=== PATIENT | male | born 1970 | race Caucasian/White ===

== ENCOUNTER 2019-04-28 01:21 | Outpatient (CLI) | payer MEDICAID, SELFPAY ==
--- NOTE | 2019-04-28 08:52 | DI.US_ITS ---
EXAM: US ABDOMEN CLINICAL HISTORY: PERIUMBILICAL/RUQ PAIN, R10.10, R10.33, R42, ? HERNIA/GALLSTONES TECHNIQUE: Ultrasound abdomen performed using standard protocol. COMPARISON: No exams were available for comparison FINDINGS: LIVER: Normal. Hepatopetal flow through the portal vein. GALLBLADDER: No evidence of cholelithiasis. No evidence of wall thickening. No pericholecystic fluid identified. KIDNEYS: Kidneys are symmetric in size. No evidence of renal calculi. No evidence of hydronephrosis. No renal mass or cyst identified. BILIARY SYSTEM: Common bile duct measures 4 mm. No intrahepatic biliary ductal dilation. ARREOLA'S SIGN: Negative. PANCREAS: Normal where visualized. SPLEEN: Not enlarged. ABDOMINAL AORTA AND IVC: Visualized portions normal caliber. ASCITES: None seen. No sonographic evidence of a periumbilical hernia. IMPRESSION: Normal sonographic appearance of the upper abdomen.
[2019-04-28 10:11] LABS: Absolute Basophil Count 0.03 k/cumm (0.0-0.2); Absolute Eosinophil Count 0.12 k/cumm (0.0-0.7); Absolute Monocyte Count 0.42 k/cumm (0.11-0.7); Absolute Neutrophil Count 2.42 k/cumm (1.2-6.7); Basophils % 0.6; Eosinophils % 2.5; HCT 40.1 % (40.0-50.0); HGB 13.8 g/dL (13.5-17.5); Lymphocytes % 38.9; Mean Corp. HGB Concentration 34.4 g/dL (32.0-36.0); Mean Corpuscular Hemoglobin 29.4 pg (27.0-33.0); Mean Corpuscular Volume 85.5 fL (80-95); Mean Platelet Volume 8.9 fL (8.0-11.0); Monocytes % 8.6; Neutrophils % 49.4; Platelet Count 358 x1000/uL (130-400); RBC 4.69 m/cumm (4.50-6.00); RBC Distribution Width 12.1 % (11.8-14.1); White Blood Cell Count 4.89 k/cumm (4.4-10.8)
[2019-04-28 10:32] LABS: Bilirubin Negative (Negative); Blood Negative (Negative); Clarity Clear (Clear); Glucose Negative (Negative); Ketones Negative (Negative); Leukocyte Esterase Negative (Negative); Nitrite Negative (Negative); Urobilinogen 0.2 EU/dL (Up TO 0.2); pH 7.5 (5-8)
[2019-04-28 11:34] LABS: Calculated LDL 204 mg/dL (<100); Cholesterol 276 mg/dL (<200); HDL Cholesterol 52 mg/dL (40-60); Triglyceride 104 mg/dL (<150); Vitamin B12 422 pg/mL (193-986)
[2019-04-28 12:02] LABS: ALT 27 U/L (16-63); AST 16 U/L (15-37); Albumin 4.2 g/dL (3.4-5.0); Alkaline Phosphatase 58 U/L (46-116); Anion Gap 9.7 mmol/L (3-11); BUN 5 mg/dL (7-18); Bilirubin, Total 0.4 mg/dL (0.2-1.0); CO2 28.3 mmol/L (21.0-32.0); CREATININE 0.79 mg/dL (0.70-1.30); Calcium 9.1 mg/dL (8.5-10.1); Chloride 100 mmol/L (98-107); Glucose 119 mg/dL (74-106); Potassium 4.2 mmol/L (3.5-5.1); Sodium 138 mmol/L (136-145); TSH 1.51 uIU/mL (0.36-3.74); Total Protein 7.6 g/dL (6.4-8.2)
[2019-04-29 09:59] LABS: PSA, Screening 0.4 ng/mL (0.0-3.5)
[2019-04-29 11:19] LABS: Hepatitis B Surface Ag Negative (Negative)
[2019-04-29 11:22] LABS: HBs Antibody, Quant <3.1 mIU/mL (See Note); Hepatitis B Surface Ab Negative (See Note)
[2019-04-29 11:30] LABS: Hepatitis C Ab w Rflx HCV PCR Negative (Negative)
== END 2019-04-28 01:41 ==
PROVIDERS: PCP Naturopath; Visit Provider Naturopath
DX: R10.11 Right upper quadrant pain (principal); R10.33 Periumbilical pain; R42 Dizziness and giddiness; R53.83 Other fatigue; F32.9 Major depressive disorder, single episode, unspecified; D53.9 Nutritional anemia, unspecified; R30.0 Dysuria; N42.9 Disorder of prostate, unspecified; Z13.220 Encounter for screening for lipoid disorders
CPT/HCPCS: 36415; 80053; 80061; 84153; 86706; 86803; 87340; 76700; 81003; 82607; 84439; 84443; 85025

== ENCOUNTER 2020-04-12 10:59 | Emergency (ER) | payer MEDICAID, SELFPAY ==
[2020-04-12 11:03] VITALS: BP 140/76; PULSE 78; RESP 18; TEMP 36.2; O2SAT 97
--- NOTE | 2020-04-12 11:15 | DI.RAD_ITS ---
EXAM: XR HAND LT COMPLETE CLINICAL HISTORY: Swelling, unknown injury. TECHNIQUE: 2D digital imaging was performed. COMPARISON: No exams were available for comparison FINDINGS: BONES: No acute fracture is present. No bony destructive lesion is seen. JOINTS: No dislocation present. There is osteoarthritis of the hand. SOFT TISSUE: Normal. No radiopaque foreign bodies. IMPRESSION: Osteoarthritis of the left hand. DATA REPOSITORY: RADIATION DOSE DELIVERED:
--- NOTE | 2020-04-12 11:18 | ED.GENADUL_ITS ---
Discharge Plan Disposition Patient Disposition: HOME Condition: Stable Discharge Details Clinical Impression: Cellulitis of left hand Primary Care Provider: Bety Purcell ED Provider: Valerie Morton Home Meds and New Rx's Prescriptions: New cephalexin 500 mg tablet 500 mg PO BID 10 Days Qty: 20 RF: 0 Continued ibuprofen 800 mg Tablet 800 mg PO Q6H PRNRF: 0 cholecalciferol (vitamin D3) [Vitamin D3] 50 mcg (2,000 unit) Tablet 50 mcg PO DAILY RF: 0 Probiotic 3 billion cell Capsule 3,000 mmu cells PO DAILY RF: 0 Discharge Instructions Instructions: Cellulitis (ED) Additional Instructions: Take antibiotics as directed. You were given the first dose of ceftriaxone IV here in department. You may take the first dose of oral antibiotic tonight. Continue taking probiotics or eat yogurt daily while on antibiotics. Return to the ED if the redness extends past the marking which were done today. Return to the ED for any fever, chills, or any concerns or feeling worse at any time. Follow up with primary care provider in 3-5 days. Return to ED sooner if any worsening or concerns. Increase oral fluids. Please take Tylenol or Ibuprofen with food every 4-6 hours as needed for pain and swelling. Referrals: Bety Purcell [Primary Care Provider] - Medical Decision Making 50 year old male presents to the ED with chief complaint of left hand erythema and swelling which he noted worsened yesterday. He states that over the weekend he was shoveling snow and carrying wood. He does state that few days ago he did fall while skiing. No significant reports of trauma. He presents with decreased flexion and decreased ability to make a fist. He does have erythema noted to the thenar eminence. He also endorses some mild chills he has been applying ice and taking ibuprofen last ibuprofen was at 9:00 this morning. He has no significant past medical history, does not take any medications on a regular basis. No known drug allergies. He has no other complaints. CBC is within normal limits, absolute neutrophils are 8.29 no white blood cell count, sodium 131, chloride 97 glucose 135, blood cultures x2 are pending at this time. EXAM: XR HAND LT COMPLETE CLINICAL HISTORY: Swelling, unknown injury. TECHNIQUE: 2D digital imaging was performed. COMPARISON: No exams were available for comparison FINDINGS: BONES: No acute fracture is present. No bony destructive lesion is seen. JOINTS: No dislocation present. There is osteoarthritis of the hand. SOFT TISSUE: Normal. No radiopaque foreign bodies. IMPRESSION: Osteoarthritis of the left hand. Discussed x-ray results and lab results with patient who verbalized understanding. Erythema was marked with a marker and dated. Discussed strict return instructions with patient and discussed to return to the ED over the next 48 hours if erythema extends past the line. Patient verbalized understanding. He was given 1 g of ceftriaxone IV piggyback here in the department and prescribed cephalexin 500 mg twice a day x10 days. At this time I do feel that outpatient treatment is appropriate. I did discuss strict return instructions with patient who verbalized understanding. HPI General Mode of arrival: ambulatory . Date/Time Provider Initiated Documentation: 04/12/20 11:11 . Limitations to Documentation: no limitations . Information obtained by: patient . HPI Narrative: 50 year old male presents to the ED with chief complaint of left hand erythema and swelling which he noted worsened yesterday. He states that over the weekend he was shoveling snow and carrying wood. He does state that few days ago he did fall while skiing. No significant reports of trauma. He presents with decreased flexion and decreased ability to make a fist. He does have erythema noted to the thenar eminence. He also endorses some mild chills he has been applying ice and taking ibuprofen last ibuprofen was at 9:00 this morning. He has no significant past medical history, does not take any medications on a regular basis. No known drug allergies. He has no other complaints. Related Data Home Medications Medication Instructions Recorded Confirmed Probiotic 3,000 mmu cells PO DAILY 04/12/20 04/12/20 cephalexin 500 mg PO BID 10 Days #20 tab 04/12/20 cholecalciferol (vitamin D3) 50 mcg PO DAILY 04/12/20 04/12/20 [Vitamin D3] ibuprofen 800 mg PO Q6H PRN 04/12/20 04/12/20 Previous Rx's Medication Instructions Recorded cephalexin 500 mg PO BID 10 Days #20 tab 04/12/20 Allergies Allergy/AdvReac Type Severity Reaction Status Date / Time No Known Allergies Allergy Unverified 04/12/20 11:08 General Stated Complaint: Orthopedic BEATA: 4 Review of Systems Narrative: Constitutional: Negative for weight loss, alert and oriented, well groomed, normal body habitus, appears comfortable. HEENT: Denies trauma, headaches, blurry vision, nasal discharge, sore throat, trouble swallowing. Chest: Denies chest pain, palpitations, irregular rhythm, hypertension. Respiratory: Denies Shortness of breath, cough, hemoptysis. GI: Denies abdominal pain, nausea, vomiting, diarrhea, constipation. : Denies dysuria, hematuria, flank pain, rectal bleeding. Musculoskeletal: Left hand redness and swelling tenderness x2 days. Neuro: Denies dizziness, blurry vision, weakness, syncope, headache or facial numbness. Hematologic: Denies easy bruising, intolerance to heat or cold, hair loss. PFSH Surgical History H/O left knee surgery Social History Smoking/Tobacco Use Status: Current every day Tobacco Type: smokeless tobacco Smoking risk assessment performed?: Yes Alcohol Intake: current Alcohol Intake frequency: a few times a week Drug use: Occasionally Substance use type: marijuana Do you feel safe at home: Yes Do you feel safe in your relationship?: Yes Exam Narrative Exam Narrative: Constitutional: Alert and oriented x3. Appears stated age. Normal body habitus. Head: Normocephalic, no trauma. Eyes: Pupils PERRLA, Red reflex noted, EOM's intact. Eyelids symmetrical without lesions, discharge, or swelling. ENT: Bilateral TM's WNL, External ear normal to inspection, no mastoid TTP, swelling, or erythema, Nasal turbinates WNL, no nasal discharge. Normal dentition, Posterior pharynx WNL, no exudate. Chest: RRR, Normal S1, S2, distal pulses intact. Resp: Lungs clear to auscultation bilaterally, no wheezes, rales, or rhonchi. Musculoskeletal: Normal gait, left hand erythema and swelling noted that are imminent surrounding the base of the thumb. Does have some dorsal erythema to the base of the thumb and questionable splinter puncture wound. Questionable erythema extending up to the anterior forearm. No axilla tenderness or erythema is able to bend elbow. Skin: Capillary refill less than 2 sec. See diagram below. Neurologic: Cranial nerves II-XII intact. Alert and oriented x 3. DTR's intact. Hematologic/Lymphatic: No ecchymosis, no lymphadenopathy. Extrem Hand/finger images: 1. Erythema, warmth, swelling 2. Erythema, questionable splinter, versus wound 3. Erythema Course Vital Signs Vital signs: Vital Signs Temperature 36.2 C L 04/12/20 11:03 Pulse 78 04/12/20 11:03 Respiratory Rate 18 04/12/20 11:03 Blood Pressure 140/76 04/12/20 11:03 Pulse Oximetry 97 04/12/20 11:03 Temperature 36.2 C L 04/12/20 11:03 Temperature Source Skin 04/12/20 11:03 Pulse 78 04/12/20 11:03 Respiratory Rate 18 04/12/20 11:03 Respiratory Effort Non-Labored 04/12/20 11:06 Blood Pressure 140/76 04/12/20 11:03 Blood Pressure Position Sitting 04/12/20 11:03 Pulse Oximetry 97 04/12/20 11:03 Pain Level 7 04/12/20 11:03
[2020-04-12 11:56] LABS: Abs Immature Grans 0.03 10^3/uL (0.0-0.06); Absolute Basophil Count 0.03 10^3/uL (0.0-0.2); Absolute Eosinophil Count 0.01 10^3/uL (0.0-0.7); Absolute Lymphocyte Count 0.99 10^3/uL (1.2-3.4); Absolute Monocyte Count 1.06 10^3/uL (0.1-0.8); Absolute Neutrophil Count 8.29 10^3/uL (1.2-6.7); Basophils % 0.3; Eosinophils % 0.1; HCT 39.4 % (40.0-50.0); HGB 13.7 g/dL (13.5-17.5); Immature Grans % 0.3; Lymphocytes % 9.5; MCH 29.1 pg (27.0-33.0); MCHC 34.8 % (32.0-36.0); MCV 83.8 fL (80-95); MPV 8.8 fL (8.0-11.0); Monocytes % 10.2; Neutrophils % 79.6; Nucleated RBC 0 %; Platelet Count 323 10^3/uL (130-400); RDW 11.8 % (11.8-14.1); WBC 10.41 10^3/uL (4.4-10.8)
[2020-04-12 12:17] LABS: ALT 27 U/L (16-63); AST 17 U/L (15-37); Albumin 4.1 g/dL (3.4-5.0); Alkaline Phosphatase 58 U/L (46-116); Anion Gap 11.2 mmol/L (3-11); BUN 7 mg/dL (7-18); Bilirubin, Total 0.6 mg/dL (0.2-1.0); CO2 22.8 mmol/L (21.0-32.0); CREATININE 0.64 mg/dL (0.70-1.30); Calcium 8.8 mg/dL (8.5-10.1); Chloride 97 mmol/L (98-107); Glucose 135 mg/dL (74-106); Potassium 3.8 mmol/L (3.5-5.1); Sodium 131 mmol/L (136-145)
[2020-04-12] MEDS: cefTRIAXone 1 GM/50 ML BAG IVPB (12:36)
[2020-04-12] MEDS: Normal Saline Flush 10 ML SYR IVP (12:37)
[2020-04-12 12:39] VITALS: BP 114/54; PULSE 67; RESP 18; TEMP 36.7; O2SAT 96; O2SAT 97
[2020-04-12 12:40] VITALS: BP 114/54; PULSE 62
[2020-04-12 13:10] VITALS: O2SAT 97
[2020-04-12 13:11] VITALS: BP 110/63; PULSE 62; O2SAT 97
[2020-04-12 13:14] VITALS: BP 110/63; PULSE 65; RESP 18; TEMP 36.2; O2SAT 97
== END 2020-04-12 13:20 | disposition home or self-care (01) ==
PROVIDERS: Emergency Provider Registered Nurse Emergency; PCP Naturopath
DX: L03.114 Cellulitis of left upper limb (principal)
CPT/HCPCS: 36415; 80053; 87040; 96365; 99284; 73130; 85025; J0696

== ENCOUNTER 2020-04-13 08:37 | Emergency (ER) | payer MEDICAID, SELFPAY ==
[2020-04-13 08:41] VITALS: BP 125/68; PULSE 68; RESP 15; TEMP 36.6; O2SAT 98
--- NOTE | 2020-04-13 08:46 | ED.GENADUL_ITS ---
Discharge Plan Disposition Patient Disposition: HOME Condition: Stable Discharge Details Clinical Impression: Cellulitis of left hand Primary Care Provider: Bety Purcell ED Provider: Valerie Morton Home Meds and New Rx's Prescriptions: Continued ibuprofen 800 mg Tablet 800 mg PO Q6H PRNRF: 0 cholecalciferol (vitamin D3) [Vitamin D3] 50 mcg (2,000 unit) Tablet 50 mcg PO DAILY RF: 0 Probiotic 3 billion cell Capsule 3,000 mmu cells PO DAILY RF: 0 cephalexin 500 mg tablet 500 mg PO BID 10 Days Qty: 20 RF: 0 acetaminophen [Acetaminophen Extra Strength] 500 mg Tablet 1,000 mg PO Q6H PRNRF: 0 Discharge Instructions Instructions: Cellulitis (ED) Additional Instructions: Continue taking antibiotic as previously prescribed. Do not use left hand is much as possible. Return to the ED after 2 to 3 days of antibiotic and or if you notice red streaks up your arm, fever chills or feeling worse at any time. You were given a different IV antibiotic today clindamycin 600 mg. Your repeat labs are most we within normal limits. At this time I do not feel that you need to be admitted into the hospital. You should do well with oral antibiotics as an outpatient. Follow up with primary care provider in 3-5 days. Return to ED sooner if any worsening or concerns. Increase oral fluids. Referrals: Bety Purcell [Primary Care Provider] - Medical Decision Making states he took last night and this morning. He was also given a gram of Rocephin IV here in department. He reports decreasing redness but increased swelling and extension of erythema outside the previously marked margins. He has unable to bend his thumb. He denies any fever or chills no nausea vomiting or nor other complaints. At this time his blood cultures from yesterday are still pending. At this time we will repeat basic labs including CBC and CMP, give a liter of fluids and 600 mg clindamycin IV piggyback. CBC shows white blood cell count 11.16 which is up from 8 yesterday, neutrophils 8.50 lactate is 1.1, sodium is 133, BUN 7, creatinine 0.71 GFR is greater than 60. At this time there is no evidence of septicemia, discussed home care and continuation of oral cephalexin at home. Patient verbalized understanding. At this time I do feel that outpatient treatment is appropriate. I did discuss watching for the next 48 to 72 hours and when to return to the ED. Patient strongly encouraged to also follow-up with primary care provider. Patient remained afebrile and hemodynamically stable throughout stay. This text was generated using [employer] system, please disregard any oddities of phrase or misspellings. HPI General Mode of arrival: ambulatory . Date/Time Provider Initiated Documentation: 04/13/20 08:38 . Limitations to Documentation: no limitations . Information obtained by: patient . HPI Narrative: 50-year-old male presents to the ED with left hand redness and swelling. He was seen by myself yesterday here in the ED for same. He was placed on cephalexin 500 mg twice daily at home which he states he took last night and this morning. He was also given a gram of Rocephin IV here in department. He reports decreasing redness but increased swelling and extension of erythema outside the previously marked margins. He has unable to bend his thumb. He denies any fever or chills no nausea vomiting or nor other complaints. At this time his blood cultures from yesterday are sti ll pending. Related Data Home Medications Medication Instructions Recorded Confirmed Probiotic 3,000 mmu cells PO DAILY 04/12/20 04/13/20 cephalexin 500 mg PO BID 10 Days #20 tab 04/12/20 04/13/20 cholecalciferol (vitamin D3) 50 mcg PO DAILY 04/12/20 04/13/20 [Vitamin D3] ibuprofen 800 mg PO Q6H PRN 04/12/20 04/13/20 acetaminophen [Acetaminophen Extra 1,000 mg PO Q6H PRN 04/13/20 04/13/20 Strength] Previous Rx's Medication Instructions Recorded cephalexin 500 mg PO BID 10 Days #20 tab 04/12/20 Allergies Allergy/AdvReac Type Severity Reaction Status Date / Time No Known Allergies Allergy Unverified 04/13/20 08:47 General Stated Complaint: Cellulitis BEATA: 3 Review of Systems All systems reviewed & are unremarkable except as noted in HPI and below Musculoskeletal Musculoskeletal: Reports as per HPI, Reports arthralgias and Reports joint swelling PFSH Surgical History H/O left knee surgery Social History Smoking/Tobacco Use Status: Current every day Tobacco Type: smokeless tobacco Smoking risk assessment performed?: Yes Alcohol Intake: current Alcohol Intake frequency: a few times a week Drug use: Occasionally Substance use type: marijuana Do you feel safe at home: Yes Do you feel safe in your relationship?: Yes Exam Extrem General: normal to inspection Right upper extremity: normal to inspection Left upper extremity: hand (Erythema and warmth has decreased since yesterday. Redness has extended) Details: abnormal to inspection, tenderness and swelling Hand/finger images: 1. Erythema 2. Erythema Course Vital Signs Vital signs: Vital Signs Temperature 36.6 C 04/13/20 08:41 Pulse 68 04/13/20 08:41 Respiratory Rate 15 04/13/20 08:41 Blood Pressure 125/68 04/13/20 08:41 Pulse Oximetry 98 04/13/20 08:41 Temperature 36.6 C 04/13/20 08:41 Temperature Source Temporal Artery Scan 04/13/20 08:41 Pulse 68 04/13/20 08:41 Respiratory Rate 15 04/13/20 08:41 Blood Pressure 125/68 04/13/20 08:41 Blood Pressure Position Supine 04/13/20 08:41 Pulse Oximetry 98 04/13/20 08:41 Oxygen Delivery Method Room Air 04/13/20 08:41 Oxygen Flow Rate 0 04/13/20 08:41 Pain Level 8 04/13/20 08:41
[2020-04-13] MEDS: Normal Saline 1,000 ML 1000 ML IV (09:03)
[2020-04-13] MEDS: CLINDAMYCIN 600 MG/50 ML BAG 100 MG IVPB (09:06)
[2020-04-13 09:15] LABS: Lactate 1.1 mmol/L (0.6-1.4)
[2020-04-13 09:18] LABS: Abs Immature Grans 0.02 10^3/uL (0.0-0.06); Absolute Eosinophil Count 0.08 10^3/uL (0.0-0.7); Absolute Lymphocyte Count 1.37 10^3/uL (1.2-3.4); Absolute Monocyte Count 1.14 10^3/uL (0.1-0.8); Basophils % 0.4; Eosinophils % 0.7; HCT 40.4 % (40.0-50.0); HGB 13.9 g/dL (13.5-17.5); Immature Grans % 0.2; Lymphocytes % 12.3; MCH 29.1 pg (27.0-33.0); MCHC 34.4 % (32.0-36.0); MCV 84.5 fL (80-95); MPV 8.8 fL (8.0-11.0); Monocytes % 10.2; Neutrophils % 76.2; Nucleated RBC 0 %; Platelet Count 326 10^3/uL (130-400); RBC 4.78 10^6/uL (4.36-5.78); RDW 11.8 % (11.8-14.1); WBC 11.16 10^3/uL (4.4-10.8)
[2020-04-13 09:19] LABS: Absolute Basophil Count 0.04 10^3/uL (0.0-0.2)
[2020-04-13 09:30] LABS: ALT 35 U/L (16-63); AST 21 U/L (15-37); Alkaline Phosphatase 61 U/L (46-116); Anion Gap 7.2 mmol/L (3-11); BUN 7 mg/dL (7-18); Bilirubin, Total 0.4 mg/dL (0.2-1.0); CO2 27.8 mmol/L (21.0-32.0); CREATININE 0.71 mg/dL (0.70-1.30); Calcium 9.3 mg/dL (8.5-10.1); Chloride 98 mmol/L (98-107); Glucose 102 mg/dL (74-106); Sodium 133 mmol/L (136-145); Total Protein 8.4 g/dL (6.4-8.2)
[2020-04-13 09:43] VITALS: BP 134/72; PULSE 68; RESP 16; TEMP 36.8; O2SAT 100
[2020-04-13] MEDS: Acetaminophen 500 MG TAB PO (09:56)
[2020-04-13 10:15] VITALS: BP 134/72; PULSE 68; RESP 16; TEMP 36.8; O2SAT 100
== END 2020-04-13 10:15 | disposition home or self-care (01) ==
PROVIDERS: Emergency Provider Registered Nurse Emergency; PCP Naturopath
DX: L03.114 Cellulitis of left upper limb (principal); Z48.01 Encounter for change or removal of surgical wound dressing
CPT/HCPCS: 36415; 80053; 96361; 96365; 99284; 83605; 85025; 99281